=== PATIENT | female | born 1945 | race Caucasian/White ===

== ENCOUNTER 2021-08-25 16:00 | Emergency (ER) | payer MEDICARE, MEDICAID ==
[~2021-08-25] VITALS: Ht 165.1 cm; Wt 52.0 kg
[2021-08-25 17:21] LABS: EOSINOPHILS % 2.9 % (0.0-5.0); HEMATOCRIT. 33.4 % (36.0-48.0); HEMOGLOBIN. 11.2 g/dL (12.0-16.0); LYMPHOCYTES % 21.8 % (20.0-50.0); MEAN CORPUSCULAR HEMOGLOBIN 33.5 pg (28.0-32.0); MEAN CORPUSCULAR VOLUME 100.1 fL (81.0-99.0); MEAN PLATELET VOLUME 8.6 fl (7.4-10.4); MONOCYTES % 10.9 % (2.0-8.0); NEUTROPHILS % 63.4 % (40.0-76.0); PLATELET 232 x1000/uL (130-400); RED BLOOD CELL COUNT 3.34 mill/uL (4.2-5.4)
[2021-08-25 17:25] LABS: CHLORIDE 96 mEq/L (98-107)
[2021-08-25] MEDS ORDERED: ACETAMINOPHEN 325MG TABLET PO ONE (17:30)
[2021-08-25] MEDS ORDERED: FUROSEMIDE 100MG/10ML VIAL IVP ONE (18:15)
[2021-08-25] MEDS ORDERED: FURO80TA87 MT (19:20)
[2021-08-25] MEDS ORDERED: ACET-2708 MT (19:20)
[2021-08-25 20:06] VITALS: BP 180/80
== END 2021-08-25 20:07 | disposition home or self-care (01) ==
LOC: ER 16:00
DX: M25.512 Pain in left shoulder (principal); I13.2 Hypertensive heart and chronic kidney disease with heart failure and with stage 5 chronic kidney disease, or end stage renal disease; E11.22 Type 2 diabetes mellitus with diabetic chronic kidney disease; N18.6 End stage renal disease; I50.9 Heart failure, unspecified; Z99.2 Dependence on renal dialysis; Z79.4 Long term (current) use of insulin; Z86.73 Personal history of transient ischemic attack (TIA), and cerebral infarction without residual deficits
CPT/HCPCS: 36415; 71045; 73030; 80053; 83880; 84484; 85025; 93005; 96374; 99285; J1940

== ENCOUNTER 2021-09-20 12:41 | Emergency (ER) | payer MEDICARE, MEDICAID ==
[~2021-09-20] VITALS: Ht 162.6 cm; Wt 55.0 kg
[~2021-09-20 12:41] MED LIST: ACET-2708 MT; FURO80TA87 MT
[2021-09-20] MEDS ORDERED: ACETAMINOPHEN 325MG TABLET PO ONE (15:30)
[2021-09-20 18:23] LABS: BASOPHILS % 0.4 % (0.0-2.0); EOSINOPHILS % 2.4 % (0.0-5.0); HEMOGLOBIN. 11.2 g/dL (12.0-16.0); LYMPHOCYTES % 16.2 % (20.0-50.0); MEAN CORPUSCULAR HEMOGLOBIN 33.4 pg (28.0-32.0); MEAN CORPUSCULAR VOLUME 101.1 fL (81.0-99.0); MEAN PLATELET VOLUME 8.7 fl (7.4-10.4); MONOCYTES % 9.1 % (2.0-8.0); NEUTROPHILS % 71.9 % (40.0-76.0); PLATELET 184 x1000/uL (130-400); RED BLOOD CELL COUNT 3.36 mill/uL (4.2-5.4); RED CELL DISTRIBUTION WIDTH 16.8 % (11.6-14.6)
[2021-09-20 18:30] LABS: CHLORIDE 94 mEq/L (98-107)
[2021-09-20] MEDS ORDERED: TOPUD PO (19:07)
[2021-09-20 20:11] VITALS: BP 156/86
== END 2021-09-20 20:13 | disposition home or self-care (01) ==
LOC: ER 13:01
DX: M25.552 Pain in left hip (principal); R51.9 Headache, unspecified; M79.662 Pain in left lower leg; G89.11 Acute pain due to trauma; W01.0XXA Fall on same level from slipping, tripping and stumbling without subsequent striking against object, initial encounter; Y93.89 Activity, other specified; Y92.010 Kitchen of single-family (private) house as the place of occurrence of the external cause; I13.2 Hypertensive heart and chronic kidney disease with heart failure and with stage 5 chronic kidney disease, or end stage renal disease; E11.22 Type 2 diabetes mellitus with diabetic chronic kidney disease; N18.6 End stage renal disease; I50.9 Heart failure, unspecified; Z99.2 Dependence on renal dialysis; Z79.84 Long term (current) use of oral hypoglycemic drugs; Z86.73 Personal history of transient ischemic attack (TIA), and cerebral infarction without residual deficits; I25.10 Atherosclerotic heart disease of native coronary artery without angina pectoris; Z95.5 Presence of coronary angioplasty implant and graft; Z94.4 Liver transplant status
CPT/HCPCS: 36415; 73502; 73552; 73560; 80053; 85025; 93005; 99285

== ENCOUNTER 2022-10-29 17:07 | Inpatient (IN) | payer MEDICARE, MEDICAID ==
[~2022-10-29] VITALS: Ht 160 cm; Wt 56.7 kg
[~2022-10-29 17:07] MED LIST changes: -ACET-2708 MT; +AMLO10TA80 PO; +ATOR40TA70 PO; +CARV25TA47 PO; +CLON0.1T PO; +DULO20CA18 PO; +FOLI1TAB87 PO; +INSU100C6 SQ; +INSU100V37 SQ; +LEVE250T2 PO; +LEVE500T19 PO; +LORA2DIS6 IJ; +ONDA4TAB50 PO; +PANT40TA51 PO; +RIFA550T PO; +TACR0.5C PO; +URSO250T12 PO; +VALP250C3 PO
[2022-10-29] MEDS ORDERED: IOHEXOL-350 100 ML BOTTLE ONE (17:56)
[2022-10-29 18:08] LABS: BG BASE EXCESS 8.4 mmol/L (-2.0-2.0); BG CARBOXYHEMOGLOBIN 0.8 % (0.5-1.5); BG DEOXYHEMOGLOBIN 2.4 % (0.0-5.0); BG FRACTION INSPIRED OXYGEN 21; BG HCO3 ACT 31.4 mmol/L (22.0-26.0); BG METHEMOGLOBIN 0.4 % (0.0-1.5); BG OXYGEN SATURATION 97.6 % (92.0-98.5); BG OXYHEMOGLOBIN 96.4 % (94.0-97.0); BG PCO2 37.6 mmHg (35.0-45.0); BG PO2 93.2 mmHg (75.0-100.0); BG SAMPLE SITE LEFT BRACHIAL; BG TOTAL HEMOGLOBIN 11.3 g/dL (12.0-18.0); BG VENT MODE ROOM AIR
[2022-10-29 18:13] LABS: BASOPHILS % 0.3 % (0.0-2.0); EOSINOPHILS % 2.2 % (0.0-5.0); HEMATOCRIT. 33.2 % (36.0-48.0); HEMOGLOBIN. 11.5 g/dL (12.0-16.0); LYMPHOCYTES % 21.9 % (20.0-50.0); MEAN CORPUSCULAR HEMOGLOBIN 34.7 pg (28.0-32.0); MEAN CORPUSCULAR VOLUME 100.3 fL (81.0-99.0); MEAN PLATELET VOLUME 8.2 fl (7.4-10.4); MONOCYTES % 11.5 % (2.0-8.0); NEUTROPHILS % 64.1 % (40.0-76.0); PLATELET 154 x1000/uL (130-400); RED BLOOD CELL COUNT 3.31 mill/uL (4.2-5.4); RED CELL DISTRIBUTION WIDTH 20.2 % (11.6-14.6)
[2022-10-29 18:22] LABS: CHLORIDE 94 mEq/L (98-107)
[2022-10-29 18:31] LABS: ETHANOL BLOOD < 10 mg/dL
[2022-10-29] MEDS ORDERED: ASPIRIN 325MG EC TABLET PO ONE (23:00)
[2022-10-30] MEDS ORDERED: ONDANSETRON HCL 4MG/2ML INJ IV PRN (01:30)
[2022-10-30] MEDS ORDERED: DOCUSATE SODIUM 100MG CAPSULE PO PRN (01:30)
[2022-10-30] MEDS ORDERED: GUAIFENESIN 200MG/10ML SUGAR FREE UDC PO PRN (01:30)
[2022-10-30] MEDS ORDERED: ACETAMINOPHEN 325MG TABLET PO PRN (01:30)
[2022-10-30] MEDS ORDERED: AMLODIPINE 10MG TABLET PO NR (01:30)
[2022-10-30] MEDS ORDERED: DEXTROSE 50% WATER 50ML SYRINGE IV PRN (02:00)
[2022-10-30] MEDS ORDERED: DEXTROSE 50% WATER 50ML SYRINGE IV ONE (05:01)
[2022-10-30] MEDS: INSULIN LISPRO 100 UNITS/ML SUBCUT SCH ×4 (07:00→21:00)
[2022-10-30] MEDS: BLOOD SUGAR DIAGNOSTIC STRIP TEST SCH ×4 (07:26→21:53)
[2022-10-30 09:05] LABS: BG BASE EXCESS 7.3 mmol/L (-2.0-2.0); BG CARBOXYHEMOGLOBIN 1.2 % (0.5-1.5); BG DEOXYHEMOGLOBIN 3.8 % (0.0-5.0); BG FRACTION INSPIRED OXYGEN 21; BG HCO3 ACT 31.7 mmol/L (22.0-26.0); BG METHEMOGLOBIN 0.2 % (0.0-1.5); BG OXYGEN SATURATION 96.1 % (92.0-98.5); BG OXYHEMOGLOBIN 94.8 % (94.0-97.0); BG PCO2 43.7 mmHg (35.0-45.0); BG PH 7.478 (7.350-7.450); BG SAMPLE SITE LEFT BRACHIAL; BG TOTAL HEMOGLOBIN 11.9 g/dL (12.0-18.0); BG VENT MODE ROOM AIR
[2022-10-30 17:27] LABS: CREATINE KINASE 90 IU/L (26-192); CREATINE KINASE MB FRACTION 1.3 ng/mL (0.5-3.6); TOTAL IRON BINDING CAPACITY 165 ug/dL (250-450)
[2022-10-30 17:41] LABS: FERRITIN 889 ng/mL (10-291)
[2022-10-30 17:47] LABS: FOLIC ACID (FOLATE) SERUM >20 ng/mL ng/mL (>5.38); VITAMIN B12 SERUM 1409 pg/mL (211-911)
[2022-10-30 17:51] LABS: HEPATITIS B SURFACE ANTIGEN NEGATIVE
[2022-10-30] MEDS: CLONIDINE 0.1MG TABLET PO PRN (21:53)
[2022-10-30 23:52] VITALS: BP 158/72
[2022-10-30 23:53] VITALS: BP 158/72
[2022-10-31 04:00] VITALS: BP 155/57
[2022-10-31 07:55] LABS: HEMATOCRIT. 31.2 % (36.0-48.0); HEMOGLOBIN. 10.7 g/dL (12.0-16.0); MEAN CORPUSCULAR HEMOGLOBIN 35.1 pg (28.0-32.0); MEAN CORPUSCULAR VOLUME 101.8 fL (81.0-99.0); MEAN PLATELET VOLUME 8.4 fl (7.4-10.4); PLATELET 139 x1000/uL (130-400); RED BLOOD CELL COUNT 3.06 mill/uL (4.2-5.4)
[2022-10-31 08:00] VITALS: BP 152/73
[2022-10-31] MEDS: BLOOD SUGAR DIAGNOSTIC STRIP TEST SCH ×4 (08:00→20:23)
[2022-10-31] MEDS: INSULIN LISPRO 100 UNITS/ML SUBCUT SCH ×4 (08:00→20:23)
[2022-10-31 08:08] LABS: CHLORIDE 96 mEq/L (98-107)
[2022-10-31 08:24] LABS: PHOSPHORUS 4.7 mg/dL (2.5-4.9); T4 FREE 0.63 ng/dL (0.76-1.46)
[2022-10-31 10:48] LABS: PLATELET ESTIMATE NORMAL
[2022-10-31 12:00] VITALS: BP 160/55
[2022-10-31 16:00] VITALS: BP 165/61
[2022-10-31 20:30] VITALS: BP 169/61
[2022-10-31] MEDS: CLONIDINE 0.1MG TABLET PO PRN (21:34)
[2022-11-01] VITALS (15 sets, daily range): BP systolic 124–181; BP diastolic 56–76
[2022-11-01] MEDS: CLONIDINE 0.1MG TABLET PO PRN ×2 (04:00→21:04)
[2022-11-01] MEDS: BLOOD SUGAR DIAGNOSTIC STRIP TEST SCH ×4 (06:40→20:34)
[2022-11-01 07:00] LABS: BASOPHILS % 0.6 % (0.0-2.0); HEMATOCRIT. 28.1 % (36.0-48.0); HEMOGLOBIN. 9.6 g/dL (12.0-16.0); LYMPHOCYTES % 25.2 % (20.0-50.0); MEAN CORPUSCULAR HEMOGLOBIN 34.7 pg (28.0-32.0); MEAN CORPUSCULAR VOLUME 101.4 fL (81.0-99.0); MEAN PLATELET VOLUME 8.6 fl (7.4-10.4); MONOCYTES % 13.3 % (2.0-8.0); NEUTROPHILS % 56.9 % (40.0-76.0); PLATELET 120 x1000/uL (130-400); RED BLOOD CELL COUNT 2.77 mill/uL (4.2-5.4); RED CELL DISTRIBUTION WIDTH 19.1 % (11.6-14.6)
[2022-11-01 07:07] LABS: CHLORIDE 94 mEq/L (98-107)
[2022-11-01] MEDS: INSULIN LISPRO 100 UNITS/ML SUBCUT SCH ×4 (08:10→21:05)
[2022-11-01] MEDS: AMLODIPINE 5MG TABLET PO SCH (13:45)
[2022-11-02] VITALS (8 sets, daily range): BP systolic 138–206; BP diastolic 46–74
[2022-11-02] MEDS: CLONIDINE 0.1MG TABLET PO PRN (04:16)
[2022-11-02] MEDS ORDERED: HYDRALAZINE 20MG/ML VIAL IV NR (04:45)
[2022-11-02] MEDS: BLOOD SUGAR DIAGNOSTIC STRIP TEST SCH ×4 (06:45→20:58)
[2022-11-02 06:48] LABS: BASOPHILS % 0.7 % (0.0-2.0); EOSINOPHILS % 3.3 % (0.0-5.0); HEMATOCRIT. 28.6 % (36.0-48.0); HEMOGLOBIN. 9.9 g/dL (12.0-16.0); LYMPHOCYTES % 22.3 % (20.0-50.0); MEAN CORPUSCULAR HEMOGLOBIN 34.9 pg (28.0-32.0); MEAN CORPUSCULAR VOLUME 100.7 fL (81.0-99.0); MEAN PLATELET VOLUME 8.8 fl (7.4-10.4); MONOCYTES % 12.9 % (2.0-8.0); NEUTROPHILS % 60.8 % (40.0-76.0); PLATELET 120 x1000/uL (130-400); RED BLOOD CELL COUNT 2.84 mill/uL (4.2-5.4); RED CELL DISTRIBUTION WIDTH 18.5 % (11.6-14.6)
[2022-11-02] MEDS: INSULIN LISPRO 100 UNITS/ML SUBCUT SCH ×4 (08:10→20:58)
[2022-11-02] MEDS: AMLODIPINE 5MG TABLET PO SCH ×2 (09:08→20:59)
[2022-11-02 09:31] LABS: CHLORIDE 97 mEq/L (98-107)
[2022-11-03] VITALS (15 sets, daily range): BP systolic 99–174; BP diastolic 43–72
[2022-11-03 07:17] LABS: HEMATOCRIT. 27.4 % (36.0-48.0); HEMOGLOBIN. 9.3 g/dL (12.0-16.0); MEAN CORPUSCULAR VOLUME 100.6 fL (81.0-99.0); MEAN PLATELET VOLUME 8.7 fl (7.4-10.4); PLATELET 119 x1000/uL (130-400); RED BLOOD CELL COUNT 2.73 mill/uL (4.2-5.4); RED CELL DISTRIBUTION WIDTH 17.9 % (11.6-14.6)
[2022-11-03] MEDS: BLOOD SUGAR DIAGNOSTIC STRIP TEST SCH ×4 (07:40→20:53)
[2022-11-03] MEDS: INSULIN LISPRO 100 UNITS/ML SUBCUT SCH ×4 (08:10→20:53)
[2022-11-03] MEDS: AMLODIPINE 5MG TABLET PO SCH ×2 (09:21→20:53)
[2022-11-03 09:39] LABS: BASOPHILS % 0.7 % (0.0-2.0); EOSINOPHILS % 4.3 % (0.0-5.0); HEMATOCRIT. 27.9 % (36.0-48.0); HEMOGLOBIN. 9.5 g/dL (12.0-16.0); LYMPHOCYTES % 16.9 % (20.0-50.0); MEAN CORPUSCULAR HEMOGLOBIN 34.4 pg (28.0-32.0); MEAN CORPUSCULAR VOLUME 101.3 fL (81.0-99.0); MEAN PLATELET VOLUME 8.8 fl (7.4-10.4); MONOCYTES % 13.6 % (2.0-8.0); NEUTROPHILS % 64.5 % (40.0-76.0); PLATELET 120 x1000/uL (130-400); RED BLOOD CELL COUNT 2.75 mill/uL (4.2-5.4); RED CELL DISTRIBUTION WIDTH 17.7 % (11.6-14.6)
[2022-11-03 09:44] LABS: CHLORIDE 94 mEq/L (98-107)
[2022-11-03 16:51] LABS: PLATELET ESTIMATE DECREASED
[2022-11-03] MEDS: LOSARTAN POTASSIUM 25 MG TABLET PO SCH (18:50)
[2022-11-03] MEDS: TACROLIMUS 0.5 MG CAPSULE PO SCH (18:50)
[2022-11-03] MEDS: LEVETIRACETAM 500MG TABLET PO SCH (20:53)
[2022-11-03] MEDS: VALPROIC ACID 250MG CAPSULE PO SCH (21:53)
[2022-11-04] VITALS: BP 162/57
[2022-11-04 04:00] VITALS: BP 169/65
[2022-11-04] MEDS: VALPROIC ACID 250MG CAPSULE PO SCH ×2 (05:21→16:02)
[2022-11-04 06:35] LABS: HEMATOCRIT. 31.3 % (36.0-48.0); HEMOGLOBIN. 10.5 g/dL (12.0-16.0); MEAN CORPUSCULAR HEMOGLOBIN 34.1 pg (28.0-32.0); MEAN CORPUSCULAR VOLUME 102.1 fL (81.0-99.0); MEAN PLATELET VOLUME 8.6 fl (7.4-10.4); PLATELET 132 x1000/uL (130-400); RED BLOOD CELL COUNT 3.06 mill/uL (4.2-5.4); RED CELL DISTRIBUTION WIDTH 17.5 % (11.6-14.6)
[2022-11-04] MEDS: BLOOD SUGAR DIAGNOSTIC STRIP TEST SCH ×2 (06:36→13:24)
[2022-11-04 06:48] LABS: PHOSPHORUS 3.9 mg/dL (2.5-4.9)
[2022-11-04 08:00] VITALS: BP 144/63
[2022-11-04] MEDS: INSULIN LISPRO 100 UNITS/ML SUBCUT SCH ×2 (08:04→13:10)
[2022-11-04] MEDS: TACROLIMUS 0.5 MG CAPSULE PO SCH ×2 (08:59→16:02)
[2022-11-04] MEDS: AMLODIPINE 5MG TABLET PO SCH (08:59)
[2022-11-04] MEDS: LOSARTAN POTASSIUM 25 MG TABLET PO SCH (08:59)
[2022-11-04] MEDS: LEVETIRACETAM 500MG TABLET PO SCH (08:59)
[2022-11-04 12:00] VITALS: BP 126/40
[2022-11-04 12:05] LABS: PLATELET ESTIMATE NORMAL
[2022-11-04 13:57] VITALS: BP 126/40
== END 2022-11-04 17:28 | DRG 426 ==
LOC: ER 17:07 → MICUSO 22:57 → EDBEDREQTM 23:01 → EDBEDREQ 23:01 → EDBEDREQSVC 23:01 → 7WST 10-30 23:08
PROVIDERS: ADMIT Internal Medicine; ATTEND Internal Medicine
PROC: 5A1D70Z Performance of Urinary Filtration, Intermittent, Less than 6 Hours Per Day (ICD-10-PCS; principal; 2022-11-01)
PROC: 5A1D70Z Performance of Urinary Filtration, Intermittent, Less than 6 Hours Per Day (ICD-10-PCS; 2022-11-03)
DX: E87.1 Hypo-osmolality and hyponatremia (principal); G93.41 Metabolic encephalopathy; I13.2 Hypertensive heart and chronic kidney disease with heart failure and with stage 5 chronic kidney disease, or end stage renal disease; E44.0 Moderate protein-calorie malnutrition; E87.3 Alkalosis; D63.8 Anemia in other chronic diseases classified elsewhere; E88.09 Other disorders of plasma-protein metabolism, not elsewhere classified; N18.6 End stage renal disease; E86.0 Dehydration; E11.65 Type 2 diabetes mellitus with hyperglycemia; F03.90 Unspecified dementia, unspecified severity, without behavioral disturbance, psychotic disturbance, mood disturbance, and anxiety; I25.10 Atherosclerotic heart disease of native coronary artery without angina pectoris; I50.9 Heart failure, unspecified; K74.60 Unspecified cirrhosis of liver; E78.5 Hyperlipidemia, unspecified; E11.22 Type 2 diabetes mellitus with diabetic chronic kidney disease; G40.909 Epilepsy, unspecified, not intractable, without status epilepticus; Z86.73 Personal history of transient ischemic attack (TIA), and cerebral infarction without residual deficits; Z82.49 Family history of ischemic heart disease and other diseases of the circulatory system; Z79.899 Other long term (current) drug therapy; Z79.4 Long term (current) use of insulin; Z95.1 Presence of aortocoronary bypass graft; Z99.2 Dependence on renal dialysis
CPT/HCPCS: 36415; 36600; 70496; 70498; 71045; 76700; 80048; 80053; 80320; 82330; 82375; 82436; 82550; 82553; 82607; 82728; 82746; 82805; 82962; 83036; 83540; 83550; 83605; 83735; 84100; 84439; 84443; 84484; 85025; 85379; 86705; 86709; 86803; 87340; 90935; 92610; 93005; 93306; 93880; 97162; 97166; 97535; 99291; A6261; J0360; J1815; J2405; J7507; Q9967; G0480

== ENCOUNTER 2023-01-27 21:27 | Inpatient (IN) | payer MEDICARE, MEDICAID ==
[~2023-01-27] VITALS: Ht 157.5 cm; Wt 69.9 kg
[~2023-01-27 21:27] MED LIST changes: -INSU100V37 SQ; -LEVE250T2 PO
[2023-01-27 23:32] LABS: BASOPHILS % 0.5 % (0.0-2.0); EOSINOPHILS % 5.6 % (0.0-5.0); HEMATOCRIT. 33.9 % (36.0-48.0); HEMOGLOBIN. 11.4 g/dL (12.0-16.0); LYMPHOCYTES % 30.1 % (20.0-50.0); MEAN CORPUSCULAR HEMOGLOBIN 33.4 pg (28.0-32.0); MEAN PLATELET VOLUME 8.4 fl (7.4-10.4); MONOCYTES % 12.7 % (2.0-8.0); NEUTROPHILS % 51.1 % (40.0-76.0); PLATELET 129 x1000/uL (130-400); RED BLOOD CELL COUNT 3.42 mill/uL (4.2-5.4); RED CELL DISTRIBUTION WIDTH 18.2 % (11.6-14.6)
[2023-01-27 23:41] LABS: INR 1.1; PROTHROMBIN TIME 11.9 sec (9.6-11.0)
[2023-01-27 23:44] LABS: CHLORIDE 94 mEq/L (98-107)
[2023-01-28] VITALS (11 sets, daily range): BP systolic 90–167; BP diastolic 40–83
[2023-01-28] MEDS ORDERED: IPRATROPIUM/ALBUTEROL 0.5-3(2.5)MG/3ML NEB NEB PRN (06:30)
[2023-01-28] MEDS ORDERED: ONDANSETRON HCL 4MG/2ML INJ IV PRN (06:30)
[2023-01-28] MEDS ORDERED: ENOXAPARIN 40MG/0.4ML SYR SUBCUT SCH (06:30)
[2023-01-28] MEDS ORDERED: CLONIDINE 0.1MG TABLET PO PRN (06:30)
[2023-01-28] MEDS ORDERED: GUAIFENESIN 200MG/10ML SUGAR FREE UDC PO PRN (06:30)
[2023-01-28] MEDS ORDERED: ACETAMINOPHEN 650MG/20.3ML UDC GT PRN (06:30)
[2023-01-28] MEDS ORDERED: PIPERACILLIN/TAZOBACTAM 3.375 G in DEXTROSE 5% WATER 50 ML IV SCH (06:30)
[2023-01-28] MEDS ORDERED: MAGNESIUM/ALUMINUM HYDROXIDE/SIMETHICONE 30ML UDC PO PRN (06:30)
[2023-01-28] MEDS ORDERED: IPRATROPIUM BROMIDE (0.02%) 0.5MG/2.5ML NEB HHN PRN (06:45)
[2023-01-28] MEDS ORDERED: ALBUTEROL (0.083%) 2.5MG/3ML NEB HHN PRN (06:45)
[2023-01-28] MEDS ORDERED: VANCOMYCIN 1G PREMIX 200 ML IV SCH (08:00)
[2023-01-28] MEDS: TACROLIMUS 0.5 MG CAPSULE PO SCH ×2 (08:42→16:41)
[2023-01-28] MEDS: CARVEDILOL 12.5MG TABLET PO SCH ×2 (08:42→21:00)
[2023-01-28] MEDS: URSODIOL 300MG CAPSULE PO SCH ×2 (08:42→16:40)
[2023-01-28] MEDS: PANTOPRAZOLE 40MG DR TABLET PO SCH ×2 (08:43→21:03)
[2023-01-28] MEDS: VALPROIC ACID 250MG CAPSULE PO SCH ×2 (08:43→21:03)
[2023-01-28] MEDS: LEVETIRACETAM 500MG TABLET PO SCH ×2 (08:43→21:03)
[2023-01-28] MEDS: ENOXAPARIN 30MG/0.3ML SYR SUBCUT SCH (08:45)
[2023-01-28] MEDS: CLONIDINE 0.1MG TABLET PO PRN (08:53)
[2023-01-28] MEDS: ACETAMINOPHEN 650MG/20.3ML UDC GT PRN ×2 (08:53→21:01)
[2023-01-28] MEDS: AMLODIPINE 10MG TABLET PO SCH (08:53)
[2023-01-28] MEDS: PIPERACILLIN/TAZOBACTAM 3.375 G in DEXTROSE 5% WATER 50 ML IV SCH ×2 (08:57→20:34)
[2023-01-28] MEDS ORDERED: NALOXONE HCL 0.4MG/ML VIAL IV PRN (14:30)
[2023-01-28] MEDS: TRAMADOL 50MG TABLET PO PRN (16:41)
[2023-01-28 18:00] LABS: HEMATOCRIT 28.4 % (36.0-48.0); HEMOGLOBIN 9.7 g/dL (12.0-16.0); MEAN CORPUSCULAR HEMOGLOBIN 33.8 pg (28.0-32.0); MEAN CORPUSCULAR VOLUME 98.8 fL (81.0-99.0); PLATELET 115 x1000/uL (130-400); RED BLOOD CELL COUNT 2.87 mill/uL (4.2-5.4)
[2023-01-28 18:44] LABS: PHOSPHORUS 3.9 mg/dL (2.5-4.9); T4 FREE 0.69 ng/dL (0.76-1.46)
[2023-01-28 18:54] LABS: VITAMIN B12 SERUM 923 pg/mL (211-911)
[2023-01-28 19:45] LABS: FERRITIN 677 ng/mL (10-291)
[2023-01-28 19:46] LABS: HEPATITIS B SURFACE AB < 3.1 mIU/mL
[2023-01-28 19:57] LABS: HEPATITIS B SURFACE ANTIGEN NEGATIVE
[2023-01-28] MEDS: ATORVASTATIN CALCIUM 40MG TABLET PO SCH (21:03)
[2023-01-29] VITALS (11 sets, daily range): BP systolic 78–153; BP diastolic 44–85
[2023-01-29] MEDS ORDERED: TRAMADOL 50MG TABLET PO NR
[2023-01-29 05:51] LABS: HEMOGLOBIN. 10.6 g/dL (12.0-16.0); MEAN CORPUSCULAR HEMOGLOBIN 33.7 pg (28.0-32.0); MEAN CORPUSCULAR VOLUME 98.9 fL (81.0-99.0); MEAN PLATELET VOLUME 8.8 fl (7.4-10.4); PLATELET 114 x1000/uL (130-400); RED BLOOD CELL COUNT 3.14 mill/uL (4.2-5.4); RED CELL DISTRIBUTION WIDTH 18.5 % (11.6-14.6)
[2023-01-29] MEDS: VALPROIC ACID 250MG CAPSULE PO SCH ×2 (08:29→20:51)
[2023-01-29] MEDS: URSODIOL 300MG CAPSULE PO SCH ×2 (08:29→16:12)
[2023-01-29] MEDS: TACROLIMUS 0.5 MG CAPSULE PO SCH ×2 (08:29→16:12)
[2023-01-29] MEDS: LEVETIRACETAM 500MG TABLET PO SCH ×2 (08:29→20:52)
[2023-01-29] MEDS: PANTOPRAZOLE 40MG DR TABLET PO SCH (08:29)
[2023-01-29] MEDS: AMLODIPINE 10MG TABLET PO SCH (08:30)
[2023-01-29] MEDS: CARVEDILOL 12.5MG TABLET PO SCH ×2 (08:31→20:52)
[2023-01-29] MEDS: ENOXAPARIN 30MG/0.3ML SYR SUBCUT SCH (08:31)
[2023-01-29] MEDS: TRAMADOL 50MG TABLET PO PRN ×2 (08:32→20:52)
[2023-01-29] MEDS: PIPERACILLIN/TAZOBACTAM 3.375 G in DEXTROSE 5% WATER 50 ML IV SCH (08:32)
[2023-01-29 08:56] LABS: PLATELET ESTIMATE DECREASED
[2023-01-29] MEDS ORDERED: VANCOMYCIN 750MG PREMIX 150 ML IV NR (10:00)
[2023-01-29] MEDS ORDERED: TRAM50TA3 PO (11:31)
[2023-01-29] MEDS ORDERED: LEVO25TA7 PO (11:31)
[2023-01-29] MEDS: LEVOTHYROXINE SODIUM 25MCG TABLET PO SCH (11:55)
[2023-01-29] MEDS: ATORVASTATIN CALCIUM 40MG TABLET PO SCH (20:52)
[2023-01-30] VITALS (13 sets, daily range): BP systolic 92–180; BP diastolic 47–72
[2023-01-30] MEDS: CLONIDINE 0.1MG TABLET PO PRN ×2 (00:10→08:17)
[2023-01-30] MEDS: ACETAMINOPHEN 650MG/20.3ML UDC GT PRN ×2 (00:10→06:26)
[2023-01-30 06:57] LABS: EOSINOPHILS % 9.4 % (0.0-5.0); HEMATOCRIT. 32.7 % (36.0-48.0); HEMOGLOBIN. 11.2 g/dL (12.0-16.0); LYMPHOCYTES % 34.8 % (20.0-50.0); MEAN CORPUSCULAR HEMOGLOBIN 34.1 pg (28.0-32.0); MEAN CORPUSCULAR VOLUME 99.5 fL (81.0-99.0); MEAN PLATELET VOLUME 9.1 fl (7.4-10.4); MONOCYTES % 13.6 % (2.0-8.0); NEUTROPHILS % 41.2 % (40.0-76.0); PLATELET 124 x1000/uL (130-400); RED BLOOD CELL COUNT 3.29 mill/uL (4.2-5.4); RED CELL DISTRIBUTION WIDTH 18.6 % (11.6-14.6)
[2023-01-30 07:55] LABS: PHOSPHORUS 3.9 mg/dL (2.5-4.9)
[2023-01-30] MEDS: VALPROIC ACID 250MG CAPSULE PO SCH (08:11)
[2023-01-30] MEDS: TACROLIMUS 0.5 MG CAPSULE PO SCH (08:11)
[2023-01-30] MEDS: LEVOTHYROXINE SODIUM 25MCG TABLET PO SCH (08:12)
[2023-01-30] MEDS: CARVEDILOL 12.5MG TABLET PO SCH (08:12)
[2023-01-30] MEDS: AMLODIPINE 10MG TABLET PO SCH (08:14)
[2023-01-30] MEDS: LEVETIRACETAM 500MG TABLET PO SCH (08:14)
[2023-01-30] MEDS: TRAMADOL 50MG TABLET PO PRN (08:14)
[2023-01-30] MEDS: URSODIOL 300MG CAPSULE PO SCH (08:14)
[2023-01-30] MEDS: ENOXAPARIN 30MG/0.3ML SYR SUBCUT SCH (09:00)
[2023-01-30] MEDS ORDERED: FAMOTIDINE 20MG TABLET PO SCH (09:00)
[2023-01-30] MEDS ORDERED: MAGNESIUM HYDROXIDE 400MG/5ML 30ML UDC PO PRN (11:00)
[2023-01-30] MEDS ORDERED: SENNOSIDES/DOCUSATE SOD 8.6/50MG TABLET PO SCH (11:00)
[2023-01-30] MEDS ORDERED: POLYETHYLENE GLYCOL 3350 (17GM) 1 DOSE PACK PO SCH (11:00)
[2023-01-30] MEDS ORDERED: AMLO5TAB88 PO (21:33)
[2023-01-31] MEDS ORDERED: AMLODIPINE 5MG TABLET PO SCH (09:00)
== END 2023-01-30 16:40 | DRG 206 ==
LOC: ER 21:43 → SUPCPDRO 23:38 → EDBEDREQ 23:50 → EDBEDREQTM 23:50 → MICUSO 01-28 00:23 → 7WST 01-28 02:30
PROVIDERS: ADMIT Internal Medicine; ATTEND Internal Medicine
PROC: 5A1D70Z Performance of Urinary Filtration, Intermittent, Less than 6 Hours Per Day (ICD-10-PCS; principal; 2023-01-28)
PROC: 5A1D70Z Performance of Urinary Filtration, Intermittent, Less than 6 Hours Per Day (ICD-10-PCS; 2023-01-30)
DX: T82.838A Hemorrhage due to vascular prosthetic devices, implants and grafts, initial encounter (principal); I13.2 Hypertensive heart and chronic kidney disease with heart failure and with stage 5 chronic kidney disease, or end stage renal disease; N18.6 End stage renal disease; Z94.4 Liver transplant status; D63.1 Anemia in chronic kidney disease; E11.22 Type 2 diabetes mellitus with diabetic chronic kidney disease; I50.9 Heart failure, unspecified; E78.5 Hyperlipidemia, unspecified; I25.10 Atherosclerotic heart disease of native coronary artery without angina pectoris; K74.60 Unspecified cirrhosis of liver; E03.9 Hypothyroidism, unspecified; M72.2 Plantar fascial fibromatosis; G24.9 Dystonia, unspecified; G40.909 Epilepsy, unspecified, not intractable, without status epilepticus; Z20.822 Contact with and (suspected) exposure to COVID-19; F17.200 Nicotine dependence, unspecified, uncomplicated; Z79.4 Long term (current) use of insulin; Z99.2 Dependence on renal dialysis; Z91.15 Patient's noncompliance with renal dialysis; Z86.73 Personal history of transient ischemic attack (TIA), and cerebral infarction without residual deficits; Z82.49 Family history of ischemic heart disease and other diseases of the circulatory system; Z95.1 Presence of aortocoronary bypass graft; Z90.49 Acquired absence of other specified parts of digestive tract; Y84.8 Other medical procedures as the cause of abnormal reaction of the patient, or of later complication, without mention of misadventure at the time of the procedure; Y92.89 Other specified places as the place of occurrence of the external cause
CPT/HCPCS: 36415; 71045; 80048; 80053; 80197; 80202; 82040; 82607; 82728; 82746; 83036; 83540; 83550; 83735; 84100; 84134; 84145; 84439; 84443; 85025; 85027; 86705; 86706; 86709; 86803; 86850; 86900; 87340; 87426; 90935; 93005; 97162; 99285; C1893; J1650; J2543; J3370; J7060; J7507